=== PATIENT | male | born 1990 | race African-American/Black ===

== ENCOUNTER 2025-01-20 00:46 | Emergency (ER) | payer OTHER, SELFPAY ==
[2025-01-20 01:21] LABS: PT Prothrombin Time 11.8 SECONDS (10-13.0); Protime INR 1.04
[2025-01-20 01:23] LABS: Absolute Eosinophils 0.1 K/uL (0-0.5); Absolute Lymphocytes (CBC) 2.3 K/uL (0.7-4.9); Absolute Monocytes 0.5 K/uL (0.1-1.3); Absolute Neutrophil 1.2 K/uL (1.8-8.0); Basophils % 1.1 % (0-1.3); Eosinophils % 1.3 % (0-4.4); Hematocrit 39.7 % (39.6-49.0); Hemoglobin 13.7 g/dL (13.6-17.9); Lymphocytes % 55.5 % (15.3-44.8); MCH 29.4 pg (27.0-35.0); MCHC 34.4 g/dL (32.0-36.0); MCV 85.4 fL (80-100); MPV 8.3 fL (7.6-11.3); Monocytes % 12.3 % (3.3-12.3); Neutrophils % 29.8 % (41.7-73.7); Nucleated Red Blood Cells % 0.3 % (0-0); Platelets 238 thou/uL (152-406); RBC Red Blood Cell Count 4.66 M/uL (4.33-5.43)
[2025-01-20 01:32] LABS: Anion Gap 9.3 mEq/L (5.0-15.0); Potassium 3.3 mEq/L (3.5-5.1); Troponin High Sensitivity 3.6 pg/mL (<58.9)
[2025-01-20 01:41] LABS: Albumin 3.6 g/dL (3.4-5.0); Albumin/Globulin Ratio 0.9 (1.1-1.8); Bilirubin Direct 0.2 mg/dL (0-0.2); Bilirubin Indirect, Calculated 0.4 mg/dL (0.2-0.8); Bilirubin Total 0.6 mg/dL (0.2-1.0); Globulin 3.8 g/dL (2.3-3.5); Protein, Total 7.4 g/dL (6.4-8.2)
[2025-01-20 01:53] LABS: Thyroid Stimulating Hormone 4.13 uIU/mL (0.358-3.740)
[2025-01-20] MEDS ORDERED: KETOROLAC 30 MG/ML INJ ONE (02:01)
[2025-01-20] MEDS ORDERED: METOCLOPRAMIDE 10 MG/2mL INJ ONE (02:02)
[2025-01-20] MEDS ORDERED: cloNIDine HCL 0.1 MG TAB ONE (02:02)
[2025-01-20] MEDS ORDERED: ASPIRIN 81 MG CHEWABLE TABLET ONE (02:05)
[2025-01-20 02:41] LABS: Band Neutrophils 7 % (0-1); Differential Total Cells Count 100; Eosinophils 1 % (0-3); Lymphocytes 48 % (15-42); Monocytes 4 % (0-10); Reactive Lymphocytes 12 %; Segmented Neutrophils 28 % (40-80)
[2025-01-20 02:42] LABS: Blood Morphology Comment NOT SEEN (NOT SEEN); Platelet Estimate ADEQ
--- NOTE | 2025-01-20 02:56 | RAD REPORT ---
EXAM DESCRIPTION: CT of the head without contrast CLINICAL HISTORY: new onset headache COMPARISON: None available TECHNIQUE: Axial CT of the head obtained from the skull apex to the skull base without contrast. This exam was performed according to our departmental dose-optimization program, which includes automated exposure control, adjustment of the mA and/or kV according to patient size and/or use of it erative reconstruction technique. FINDINGS: No acute intracranial hemorrhage identified. No mass, mass effect, shift of the midline, abnormal ext ra-axial fluid collection or CT evidence of acute ischemic change identified. The ventricular system is unremarkable. No acute abnormalities of the supratentorial white matter, basal ganglia, c erebellum, or brainstem. The visualized paranasal sinuses and the mastoids are relatively well aerated. No skull fracture id entified. Visualized orbits and globes are unremarkable. IMPRESSION: 1. No acute intracranial abnormality identified. Electronically signed by: Denzel Mcfarlane DO 01/20/2025 02:09 AM CDT RP 4ZDM Due to temporary technical issues with the PACS/[employer] reporting system, reports are being bhavesh d by the in-house radiologist without review as a courtesy to ensure prompt reporting the interpreting radiologist is fully responsible for the content of the report. Transcribed Date/Time: 01/20/2025 2:56 AM
--- NOTE | 2025-01-20 04:50 | EDPHYS ---
Physician Documentation [facility] Name: Erich Moon Age: 34 yrs Sex: Male : 1990 Arrival Date: 01/20/2025 Time: 00:46 Bed 6 Private MD: ED Physician Roni Rizvi HPI: 01/20 00:57 This 34 yrs old Black Male presents to ER via Unassigned with complaints of Chest Pain, sp4 High Blood Pressure, Headache, Dizziness. 00:57 Patient presents with acute onset of chest pain, elevated blood pressure headache and sp4 dizziness.. 04:30 Patient has history of hypertension he takes olmesartan and possibly HCTZ. He history sp4 of several weeks of persistent sharp chest pains to the left lower chest. Feeling unwell overall elevated blood pressure at home patient reports 2 years ago he had echocardiogram which was normal and stress test which was also normal. Patient reports associated headache request CT of the head.. Historical: - Allergies: 00:58 No Known Allergies; dd2 - PMHx: 00:58 Hypertensive disorder; dd2 - PSHx: 00:58 None; dd2 - Immunization history:: Adult Immunizations up to date. - Infectious Disease History:: Denies. - Social history:: Smoking status: Patient denies any tobacco usage or history of. - Family history:: not pertinent. ROS: 04:31 Constitutional: Negative for fever, chills, and weight loss, Positive Chest pain , sp4 positive headache 04:31 All other systems are negative, Exam: 04:32 Constitutional: This is a well developed, well nourished patient who is awake, alert, sp4 and in no acute distress. Head/Face: Normocephalic, atraumatic. Eyes: Pupils equal round and reactive to light, extra-ocular motions intact. Lids and lashes normal. Conjunctiva and sclera are not injected. Cornea within normal limits. Periorbital areas with no swelling, redness, or edema. ENT: Nares patent. No nasal discharge, no septal abnormalities noted. Tympanic membranes are normal and external auditory canals are clear. Oropharynx with no redness, swelling, or masses, exudates, or evidence of obstruction, uvula midline. Mucous membranes moist. Neck: Trachea midline, no thyromegaly or masses palpated, and no cervical lymphadenopathy. Supple, full range of motion without nuchal rigidity, or vertebral point tenderness. Chest/axilla: Normal chest wall appearance and motion. Nontender with no deformity. No lesions are appreciated. Cardiovascular: Regular rate and rhythm with a normal S1 and S2. No gallops, murmurs, or rubs. Normal PMI, no JVD. No pulse deficits. Respiratory: Lungs have equal breath sounds bilaterally, clear to auscultation and percussion. No rales, rhonchi or wheezes noted. No increased work of breathing, no retractions or nasal flaring. Abdomen/GI: Soft, with normal bowel sounds. No distension or tympany. No guarding or rebound. No evidence of tenderness throughout. Back: No spinal tenderness. No costovertebral tenderness. Skin: Warm, dry with normal turgor. Normal color with no rashes, no lesions, and no evidence of cellulitis. MS/ Extremity: Pulses equal, no cyanosis. Neurovascular intact. Full, normal range of motion. Neuro: Awake and alert, GCS 15, oriented to person, place, time, and situation. Cranial nerves II-XII grossly intact. Motor strength 5/5 in all extremities. Sensory grossly intact. Psych: Awake, alert, with orientation to person, place and time. Behavior, mood, and affect are within normal limits 05:09 ECG was reviewed by the Attending Physician. EKG at 0055 sp4 Vital Signs: 00:56 BP 148 / 70; Pulse 69; Resp 16; Temp 98.3(O); Pulse Ox 100% on R/A; Weight 83.91 kg; dd2 Height 5 ft. 8 in. ; Pain 4/10; 02:00 BP 126 / 68; Pulse 59; Resp 18 S; Pulse Ox 97% on R/A; dd2 03:00 BP 130 / 53; Pulse 63; Resp 16; Pulse Ox 98% on R/A; dd2 04:00 BP 115 / 52; Pulse 65; Resp 15; Pulse Ox 100% on R/A; dd2 05:01 BP 109 / 54; Pulse 55; Resp 16; Temp 98.4; Pulse Ox 99% on R/A; Pain 0/10; dd2 00:56 Body Mass Index 28.13 (83.91 kg, 172.72 cm) dd2 00:56 Pain Scale: Adult dd2 05:01 Pain Scale: Adult dd2 Farrah Coma Score: 01:01 Eye Response: spontaneous(4). Motor Response: obeys commands(6). Verbal Response: dd2 oriented(5). Total: 15. 04:32 Eye Response: spontaneous(4). Motor Response: obeys commands(6). Verbal Response: sp4 oriented(5). Total: 15. MDM: 00:58 Medical Screening Exam initiated sp4 02:54 ED course: EXAM DESCRIPTION: CT of the head without contrast CLINICAL HISTORY: new sp4 onset headache COMPARISON: None available TECHNIQUE: Axial CT of the head obtained from the skull apex to the skull base without contrast. This exam was performed according to our departmental dose-optimization program, which includes automated exposure control, adjustment of the mA and/or kV according to patient size and/or use of iterative reconstruction technique. FINDINGS: No acute intracranial hemorrhage identified. No mass, mass effect, shift of the midline, abnormal extra-axial fluid collection or CT evidence of acute ischemic change identified. The ventricular system is unremarkable. No acute abnormalities of the supratentorial white matter, basal ganglia, cerebellum, or brainstem. The visualized paranasal sinuses and the mastoids are relatively well aerated. No skull fracture identified. Visualized orbits and globes are unremarkable. IMPRESSION: 1. No acute intracranial abnormality identified. . ED course: EXAM DESCRIPTION: Chest Single View CLINICAL HISTORY: CHEST PAIN COMPARISON: None. FINDINGS: 1 view(s) of the chest. Tubes and lines: Leads overlie the chest. Cardiomediastinal silhouette: Normal size and contour. Lungs: No consolidation, pneumothorax, or pleural effusion. Bones: No acute osseous abnormality. Upper abdomen: No abnormality identified. IMPRESSION: 1. No acute pulmonary process identified. . 05:08 Differential diagnosis: anxiety, chest wall pain, esophagitis, gastritis, unstable sp4 angina. HEART Score: History: Slightly Suspicious (0), ECG: Normal (0), Age: < or = 45 years (0), Risk Factors: No Risk Factors Known (0), Troponin: < or = 1 x Normal Limit (0), Total Score = 0. 05:10 Data reviewed: vital signs, nurses notes, lab test result(s), EKG, radiologic studies, sp4 CT scan, plain films. Consideration of Admission/Observation Escalation of care including admission/observation considered. ED course: Workup is negative, second troponin is negative. Patient stable for discharge home. 01/20 00:56 Order name: Basic Metabolic Panel; Complete Time: 02:53 dd2 01/20 00:56 Order name: CBC with Diff; Complete Time: 02:53 dd2 01/20 00:56 Order name: Troponin HS; Complete Time: 02:53 dd2 01/20 00:58 Order name: TSH; Complete Time: 02:53 sp4 01/20 00:58 Order name: LFT's; Complete Time: 02:53 sp4 01/20 00:58 Order name: BNP; Complete Time: 02:53 sp4 01/20 01:01 Order name: PT-INR; Complete Time: 02:53 al5 01/20 01:26 Order name: Manual Differential; Complete Time: 02:53 EDMS 01/20 01:56 Order name: T4 Free; Complete Time: 02:53 EDMS 01/20 03:00 Order name: Troponin High Sensitivity: 0400 collect at 04:00; Complete Time: 04:46 sp4 01/20 00:56 Order name: XRAY Chest (1 view) dd2 01/20 01:10 Order name: CT Head Brain wo Cont 4 01/20 00:56 Order name: Cardiac monitoring; Complete Time: 01: dd01/20 00:56 Order name: EKG - Nurse/Tech; Complete Time: 01: dd01/20 00:56 Order name: IV Saline Lock; Complete Time: 01:01/20 00:56 Order name: Labs collected and sent; Complete Time: 01: dd01/20 00:56 Order name: O2 Per Protocol; Complete Time: 01: dd01/20 00:56 Order name: O2 Sat Monitoring; Complete Time: 01: EC:55 Rate is 66 beats/min. Rhythm is regular, Normal Sinus Rhythm. QRS [place] is Normal. MN sp4 interval is normal. QRS interval is normal. QT interval is normal. No Q waves. T waves are Normal. No ST changes noted. Clinical impression: Normal ECG. Interpreted by me. Reviewed by me. Administered Medications: 02:04 Not Given (Physician Discretion): clonidine0.1 mg PO once dd2 02:12 Drug: metoCLOPramide IVP 10 mg IVP once; over 1 to 2 minutes Route: IVP; Site: right al5 antecubital; 03:26 Follow up: Response: No adverse reaction; Pain is decreased al5 02:12 Drug: Ketorolac IVP 30 mg IVP once Route: IVP; Site: right antecubital; al5 03:26 Follow up: Response: No adverse reaction; Pain is decreased al5 03:29 Not Given (Physician Discretion): ns 0.9% 1000 ml IV at 1 bolus Per protocol; to be al5 given as a bolus over 60 minutes Disposition Summary: 01/20/25 04:49 Discharge Ordered Problem: new sp4 Symptoms: have improved sp4 Condition: Stable sp4 Diagnosis - Tension-type headache sp4 - Essential (primary) hypertension sp4 Followup: sp4 - With: Private Physician - When: 10 - 14 days - Reason: Recheck today's complaints Discharge Instructions: - Discharge Summary Sheet sp4 - Hypertension, Adult sp4 Forms: - Patient Portal Instructions sp4 Signatures: Dispatcher [employer] EDRoni Shipman MD MD sp4 Dania Lopes RN RN al5 INDU DE SOUZA RN RN dd2 Corrections: (The following items were deleted from the chart) 00:57 00:57 BASIC METABOLIC PANEL+C.LAB.BRZ ordered. EDMS EDMS 00:57 00:57 CBC+H.LAB.BRZ ordered. EDMS EDMS 00:57 00:57 Troponin High Sensitivity+C.LAB.BRZ ordered. EDMS EDMS 00:57 00:57 Chest Single View+RAD.RAD.BRZ ordered. EDMS EDMS 01:01 01:01 PROTIME (+INR)+COAG.LAB.BRZ ordered. EDMS EDMS 03:00 03:00 Troponin High Sensitivity+C.LAB.BRZ ordered. EDMS EDMS
--- NOTE | 2025-01-20 04:50 | ER ---
Nurse's Notes [facility] Name: Erich Moon Age: 34 yrs Sex: Male : 1990 Arrival Date: 01/20/2025 Time: 00:46 Bed 6 Private MD: Diagnosis: Tension-type headache;Essential (primary) hypertension Presentation: 01/20 00:56 Chief complaint: Patient states: PALPITATIONS, CHEST PAIN AND HEAD PRESSURE THAT OCCURS dd2 OFF/ON SINCE YESTERDAY 01/19/2025. Coronavirus screen: At this time, the client does not indicate any symptoms associated with coronavirus-19. Ebola Screen: No symptoms or risks identified at this time. Initial Sepsis Screen: Does the patient meet any 2 criteria? No. Patient's initial sepsis screen is negative. Does the patient have a suspected source of infection? No. Patient's initial sepsis screen is negative. Risk Assessment: Do you want to hurt yourself or someone else? Patient reports no desire to harm self or others. Onset of symptoms was January 19, 2025. 00:56 Method Of Arrival: Ambulatory dd2 00:56 Acuity: MARCY 3 dd2 Triage Assessment: 00:58 General: Appears in no apparent distress. comfortable, Behavior is calm, cooperative, dd2 appropriate for age. Pain: Complains of pain in left lateral anterior chest Pain does not radiate. Pain currently is 4 out of 10 on a pain scale. Quality of pain is described as pressure. EENT: No deficits noted. No signs and/or symptoms were reported regarding the EENT system. Neuro: No deficits noted. Calderón Agitation-Sedation Scale (RASS): 0 - Alert and Calm Level of Consciousness is awake, alert, obeys commands, Oriented to person, place, time, situation, Appropriate for age. Cardiovascular: Heart tones S1 S2 present JVD is absent Patient's skin is warm and dry. Chest pain is described as mild. Cardiovascular: Rhythm is sinus rhythm. Respiratory: No deficits noted. Airway is patent Respiratory effort is even, unlabored, Respiratory pattern is regular, symmetrical. GI: No deficits noted. No signs and/or symptoms were reported involving the gastrointestinal system. Abdomen is flat, non-distended, Abd is soft and non tender X 4 quads. : No deficits noted. No signs and/or symptoms were reported regarding the genitourinary system. Derm: No deficits noted. No signs and/or symptoms reported regarding the dermatologic system. Skin is healthy with good turgor, Skin is dry, Skin is normal. Musculoskeletal: No deficits noted. No signs and/or symptoms reported regarding the musculoskeletal system. Circulation, motion, and sensation intact. Range of motion: intact in all extremities. Historical: - Allergies: 00:58 No Known Allergies; dd2 - PMHx: 00:58 Hypertensive disorder; dd2 - PSHx: 00:58 None; dd2 - Immunization history:: Adult Immunizations up to date. - Infectious Disease History:: Denies. - Social history:: Smoking status: Patient denies any tobacco usage or history of. - Family history:: not pertinent. Screenin:01 [facility] ED Fall Risk Assessment (Adult) History of falling in the last 3 months, dd2 including since admission No falls in past 3 months (0 pts) Confusion or Disorientation No (0 pts) Intoxicated or Sedated No (0 pts) Impaired Gait No (0 pts) Mobility Assist Device Used No (0 pt) Altered Elimination No (0 pt) Score/Fall Risk Level 0 - 2 = Low Risk Oriented to surroundings, Maintained a safe environment, Educated pt \T\ family on fall prevention, incl call for assistance when getting out of bed, Assessed \T\ reinforced patient's understanding of fall precautions, Hourly rounding (assess needs \T\ fall precautionary measures) done. Abuse screen: Denies threats or abuse. Denies injuries from another. Nutritional screening: No deficits noted. Tuberculosis screening: No symptoms or risk factors identified. Assessment: 01:01 Reassessment: SEE TRIAGE ASSESSMENT FOR FULL ASSESSMENT. dd2 03:26 Reassessment: Patient appears in no apparent distress at this time. Patient and/or al5 family updated on plan of care and expected duration. Pain level reassessed. Patient is alert, oriented x 3, equal unlabored respirations, skin warm/dry/pink. Patient states feeling better. Patient states symptoms have improved. Vital Signs: 00:56 BP 148 / 70; Pulse 69; Resp 16; Temp 98.3(O); Pulse Ox 100% on R/A; Weight 83.91 kg; dd2 Height 5 ft. 8 in. ; Pain 4/10; 02:00 BP 126 / 68; Pulse 59; Resp 18 S; Pulse Ox 97% on R/A; dd2 03:00 BP 130 / 53; Pulse 63; Resp 16; Pulse Ox 98% on R/A; dd2 04:00 BP 115 / 52; Pulse 65; Resp 15; Pulse Ox 100% on R/A; dd2 05:01 BP 109 / 54; Pulse 55; Resp 16; Temp 98.4; Pulse Ox 99% on R/A; Pain 0/10; dd2 00:56 Body Mass Index 28.13 (83.91 kg, 172.72 cm) dd2 00:56 Pain Scale: Adult dd2 05:01 Pain Scale: Adult dd2 Farrah Coma Score: 01:01 Eye Response: spontaneous(4). Motor Response: obeys commands(6). Verbal Response: dd2 oriented(5). Total: 15. 04:32 Eye Response: spontaneous(4). Motor Response: obeys commands(6). Verbal Response: sp4 oriented(5). Total: 15. ED Course: 00:49 Patient arrived in ED. im 00:57 Roni Rizvi MD is Attending Physician. sp4 00:58 Triage completed. dd2 00:58 Arm band placed on right wrist. EKG completed in triage. Results shown to MD. dd2 01:00 Dania Lopes, RN is Primary Nurse. al5 01:01 Patient has correct armband on for positive identification. Bed in low position. Call dd2 light in reach. Side rails up X2. Client placed on continuous cardiac and pulse oximetry monitoring. NIBP monitoring applied. case monitor on. Door closed. Noise minimized. Warm blanket given. Pillow given. Verbal reassurance given. 01:01 No provider procedures requiring assistance completed. Initial lab(s) drawn, by ED dd2 staff, sent to lab. EKG done, by ED staff, reviewed by Roni Rizvi MD. Inserted saline lock: 20 gauge in right antecubital area, using aseptic technique. Blood collected. Flushed with 10 mL NS. Patient maintains SpO2 saturation greater than 95% on room air. 01:25 XRAY Chest (1 view) In Process Unspecified. EDMS 01:46 CT Head Brain wo Cont In Process Unspecified. EDMS 05:01 Provided Education on: D/C EDUCATION. dd2 05:01 IV discontinued, intact, bleeding controlled, No redness/swelling at site. Pressure dd2 dressing applied. Administered Medications: 02:04 Not Given (Physician Discretion): clonidine0.1 mg PO once dd2 02:12 Drug: metoCLOPramide IVP 10 mg IVP once; over 1 to 2 minutes Route: IVP; Site: right al5 antecubital; 03:26 Follow up: Response: No adverse reaction; Pain is decreased al5 02:12 Drug: Ketorolac IVP 30 mg IVP once Route: IVP; Site: right antecubital; al5 03:26 Follow up: Response: No adverse reaction; Pain is decreased al5 03:29 Not Given (Physician Discretion): ns 0.9% 1000 ml IV at 1 bolus Per protocol; to be al5 given as a bolus over 60 minutes Medication: 01:01 VIS not applicable for this client. dd2 Outcome: 04:49 Discharge ordered by . sp4 05:04 Discharged to home ambulatory, dd2 05:04 Condition: stable 05:04 Discharge instructions given to patient, Instructed on discharge instructions, follow up and referral plans. medication usage, Demonstrated understanding of instructions, follow-up care, medications, 05:04 Patient left the ED. dd2 Signatures: Dispatcher [employer] EDMS Roni Rizvi MD MD sp4 Cat Kamara Amanda RN RN al5 INDU DE SOUZA RN RN dd2
[2025-01-20 05:16] VITALS: BP 109/54; TEMP 98.4; O2SAT 99
--- NOTE | 2025-01-20 05:53 | RAD REPORT ---
EXAM DESCRIPTION: Chest Single View CLINICAL HISTORY: CHEST PAIN COMPARISON: None. FINDINGS: 1 view(s) of the chest. Tubes and lines: Leads overlie the chest. Cardiomediastinal silhouette: Normal size and contour. Lungs: No consolidation, pneumothorax, or pleural effusion. Bones: No acute osseous abnormality. Upper abdomen: No abnormality identified. IMPRESSION: 1. No acute pulmonary process identified. Electronically signed by: Denzel Mcfralane DO 01/20/2025 02:08 AM CDT 4ZDM Due to temporary technical issues with the PACS/[employer] reporting system, reports are being bhavesh d by the in-house radiologist without review as a courtesy to ensure prompt reporting the interpreting radiologist is fully responsible for the content of the report. Transcribed Date/Time: 01/20/2025 5:52 AM
--- NOTE | 2025-01-22 08:46 | EKG ---
Test Date: 2025-01-20 Test Time: 00:55:32 Equipment Specialist: ADRIANA MEASUREMENT RESULTS: Intervals: Rate: 66 MA: 192 QRSD: 98 QT: 382 QTc: 400 [place]: P: 58 MA: 192 QRS: 88 T: 66 INTERPRETIVE STATEMENTS: Normal sinus rhythm Normal ECG No previous ECG available for comparison Electronically Signed On 01-22-25 08:39:02 CDT by Nishant Low
== END 2025-01-20 05:04 | disposition home or self-care (01) ==
LOC: ER 00:46
DX: G44.209 Tension-type headache, unspecified, not intractable (principal); I10 Essential (primary) hypertension
CPT/HCPCS: 93005; 85025; 80048; 36415; 85610; 80076; 84443; 84484 ×2; 84439; 83880; 70450; 71045; 96375; 96374; 99285; J2765